=== PATIENT | female | born 1985 | race Caucasian/White ===

== ENCOUNTER → 2016-11-29 | Outpatient (CLI) | payer MEDICARE ==
[2016-11-29 13:55] LABS: Basophils # (A) 0.1 k/uL (0-0.2); Basophils % (A) 1 %; CH 29.2; CHCM 32.7; Eosinophils # (A) 0.2 k/uL (0-0.7); Eosinophils % (A) 2 %; HDW 2.69; HGB 12.7 gm/dL (11.4-16.0); Luc # (Auto) 0.24; Luc % (Auto) 2; Lymphocytes % (A) 20 %; MCH 28.6 pg (25.0-35.0); MCHC 31.8 g/dL (31.0-37.0); MCV 89.8 fL (80.0-100.0); Mean Platelet Volume 7.3; Monocytes # (A) 0.5 k/uL (0-1.0); Monocytes % (A) 5 %; Neutrophils # (A) 7.1 k/uL (1.3-7.7); Neutrophils % (A) 71 %; RBC 4.45 m/uL (3.80-5.40); RDW 14.1 % (11.5-15.5); WBC 10.1 k/uL (3.8-10.6)
[2016-11-29 14:57] LABS: Hepatitis B Surface Ag Index 0.07
[2016-11-29 15:03] LABS: Hepatitis B Core IgM Index 0.05
[2016-11-29 15:14] LABS: Hepatitis C Virus IgG Index 0.01
[2016-11-29 15:20] LABS: Hepatitis C Virus IgG Ab Negative (Negative)
[2016-11-30 07:24] LABS: HIV-1/HIV-2 Ab Screen NONREAC (NON REAC)
== END | disposition home or self-care (01) ==
LOC: LABWHC1 13:07
PROVIDERS: ATTEND Physician Assistant
DX: Z11.3 Encounter for screening for infections with a predominantly sexual mode of transmission (principal)
CPT/HCPCS: 36415; 80074; 85025; 87389

== ENCOUNTER → 2016-12-14 | Outpatient (CLI) | payer MEDICARE, OTHER ==
--- NOTE | 2016-12-14 10:30 | XR ---
EXAMINATION TYPE: XR thoracic spine 2V DATE OF EXAM: 12/14/2016 10:07 AM COMPARISON: NONE HISTORY: Back pain Alignment is anatomic. There is no compression deformities. Hypertrophic change of the spine with mi ld to moderate degenerative disc disease. Pedicles intact. IMPRESSION: 1. Multilevel degenerative disc disease.
== END | disposition home or self-care (01) ==
LOC: RADXRMAIN 09:51
PROVIDERS: ATTEND Physician Assistant
DX: M51.34 Other intervertebral disc degeneration, thoracic region (principal)
CPT/HCPCS: 72070

== ENCOUNTER → 2016-12-29 | Outpatient (CLI) | payer MEDICARE, OTHER ==
--- NOTE | 2016-12-29 09:56 | MR ---
EXAMINATION TYPE: MR thoracic spine wo con DATE OF EXAM: 12/29/2016 8:02 AM COMPARISON: MRI thoracic spine January 07, 2011. HISTORY: intervertebral disc degeneration tsp per order, severe back pain and numbness for 10 years p er patient. TECHNIQUE: Multiplanar, multisequence imaging of thoracic spine is performed without contrast FINDINGS: Spinal cord shows normal course, caliber, and signal as it courses the thoracic spine. Angela tebral body heights and alignment are satisfactory. There is disc desiccation with disc space narrowi ng at T7-T8 level redemonstrated. Posterior disc herniation is again seen at this level on sagittal i mages. No new disc herniations are evident on sagittal images. Heterogeneous endplate changes in the lower cervical spine anterior endplates is now seen. There is mild to minimal multilevel anterior spu rring in the lower thoracic levels. Review of the axial images shows slightly more broad-based central disc protrusion at T7-T8 level eff acing anterior thecal sac on current study versus prior exam where was more focal. Bilateral neural f oramina remain patent. There is new central disc herniation mildly effacing anterior thecal sac at T10-T11 level on axial im age 7. Bilateral neural foramina are patent. Remainder axial images show no significant disc herniation, spinal canal effacement, bilateral neural foraminal narrowing at any thoracic level. IMPRESSION: Redemonstration of disc herniation T7-T8 level which is slightly more prominent or broad- based on current study. New small posterior disc herniation T10-T11 level is noted.
== END | disposition home or self-care (01) ==
LOC: RADMRIMAIN 07:25
PROVIDERS: ATTEND Physician Assistant
DX: M51.24 Other intervertebral disc displacement, thoracic region (principal)
CPT/HCPCS: 72146

== ENCOUNTER 2017-01-26 03:02 | Emergency (ER) | payer MEDICARE, OTHER ==
[2017-01-26] MEDS ORDERED: MORPHINE SULFATE 2 MG/ML SYRINGE ONE (03:44)
[2017-01-26] MEDS ORDERED: MORPHINE SULFATE 4 MG/ML SYRINGE ONE (03:44)
[2017-01-26] MEDS ORDERED: HYDROmorphone 1 MG/ML 1 ML SYRINGE ONE (03:44)
[2017-01-26] MEDS ORDERED: ONDANSETRON 4 MG/2 ML VIAL ONE (03:44)
[2017-01-26] MEDS ORDERED: SODIUM CHLORIDE 0.9% 1,000 ML BAG ONE (03:44)
[2017-01-26 06:36] LABS: Partial Thromboplastin Time 24.2 sec (22.0-30.0); Prothrombin Time 10.1 sec (9.0-12.0)
[2017-01-26 06:43] LABS: ALT 38 U/L (9-52); AST 46 U/L (14-36); Alkaline Phosphatase 75 U/L (38-126); Anion Gap 14 mmol/L; Blood Urea Nitrogen 16 mg/dL (7-17); Calcium 10.4 mg/dL (8.4-10.2); Carbon Dioxide 25 mmol/L (22-30); Chloride 103 mmol/L (98-107); Glucose 107 mg/dL (74-99); Non-African American GFR(MDRD) >60 (>60 ml/min/1.73 sqM); Potassium 4.5 mmol/L (3.5-5.1); Sodium 142 mmol/L (137-145); Total Bilirubin 0.6 mg/dL (0.2-1.3)
[2017-01-26 06:57] LABS: Basophils # (A) 0.1 k/uL (0-0.2); Basophils % (A) 1 %; CH 29.9; CHCM 34.5; Eosinophils # (A) 0.2 k/uL (0-0.7); Eosinophils % (A) 3 %; HCT 41.8 % (34.0-46.0); HDW 2.73; HGB 14.4 gm/dL (11.4-16.0); Luc # (Auto) 0.23; Luc % (Auto) 3; Lymphocytes # (A) 2.1 k/uL (1.0-4.8); Lymphocytes % (A) 26 %; MCHC 34.4 g/dL (31.0-37.0); MCV 87.2 fL (80.0-100.0); Mean Platelet Volume 7.1; Monocytes # (A) 0.7 k/uL (0-1.0); Monocytes % (A) 8 %; Neutrophils % (A) 60 %; RDW 13.6 % (11.5-15.5); WBC 8.3 k/uL (3.8-10.6); WBC (Perox) 8.52
--- NOTE | 2017-01-26 11:14 | CT ---
EXAMINATION TYPE: CT facial bones wo con DATE OF EXAM: 01/26/2017 6:42 AM COMPARISON: NONE HISTORY: Head Injury pain CT DLP: 1659.80 mGycm Automated exposure control for dose reduction was used. TECHNIQUE: CT scan of the sinuses is performed without contrast, axial images are obtained, coronal r eformatted images are also reviewed. FINDINGS: There is mucosal thickening in the ethmoid sinuses. I see no fracture. Orbital margins are intact. There is no evidence of blowout fracture. Rheumatic arches are intact. Axilla is intact. Ther e is minimal mucosal thickening at the floor of the right maxillary sinus. Nasal bone appears intact. The mandibular ring appears intact. IMPRESSION: No fracture. Mild ethmoid sinusitis.
--- NOTE | 2017-01-26 11:21 | CT ---
EXAMINATION TYPE: CT brain wo con DATE OF EXAM: 01/26/2017 6:42 AM COMPARISON: 03/08/2011 HISTORY: Head Injury. Pain. CT DLP: 1659.80 mGycm Automated exposure control for dose reduction was used. FINDINGS: The ventricles and sulci appear normal. There is no mass effect nor midline shift. There is no sign o f intracranial hemorrhage. I see no definite mcintyre or white matter hypodense area to suggest cerebral edema. Calvarium is intact. IMPRESSION: Negative unenhanced head CT scan. No adverse change compared to old exam.
== END 2017-01-26 05:56 | disposition left against medical advice (07) ==
LOC: EC 03:02
DX: R51 Headache (principal)
CPT/HCPCS: 36415; 70450; 70486; 80053; 85025; 85610; 85730; 99284; 99499

== ENCOUNTER → 2017-01-26 | Emergency (ER) | payer MEDICARE, OTHER ==
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
== END | disposition left against medical advice (07) ==
LOC: EC 03:02
DX: R51 Headache (principal); R11.0 Nausea; G89.29 Other chronic pain; M54.9 Dorsalgia, unspecified; F31.9 Bipolar disorder, unspecified; F41.9 Anxiety disorder, unspecified; F17.200 Nicotine dependence, unspecified, uncomplicated; Z79.899 Other long term (current) drug therapy; Z88.8 Allergy status to other drugs, medicaments and biological substances
CPT/HCPCS: 99284

== ENCOUNTER → 2017-02-12 | Outpatient (CLI) | payer MEDICARE, OTHER ==
[2017-02-12 12:38] VITALS: BP 103/68; PULSE 94; RESP 16; TEMP 97.1
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
== END | disposition home or self-care (01) ==
LOC: PNWHC3 11:57
PROVIDERS: ATTEND Specialist
DX: M51.24 Other intervertebral disc displacement, thoracic region (principal); G89.29 Other chronic pain
CPT/HCPCS: 99211

== ENCOUNTER → 2017-05-02 | Outpatient (CLI) | payer MEDICARE, OTHER ==
[2017-05-02 13:53] LABS: Follicle Stimulating Hormone 5.3 mIU/mL; Prolactin 9.7 ng/mL (3.0-18.6)
[2017-05-02 21:24] LABS: ACTH 5.05 pg/mL (0.00-45.99)
== END | disposition home or self-care (01) ==
LOC: LABWHC1 11:59
PROVIDERS: ATTEND Internal Medicine Endocrinology, Diabetes & Metabolism
DX: E03.8 Other specified hypothyroidism (principal); R53.83 Other fatigue
CPT/HCPCS: 36415; 82024; 82533; 82607; 83001; 83002; 84144; 84146; 84439; 84443; 84480

== ENCOUNTER → 2017-05-11 | Outpatient (CLI) | payer MEDICARE, OTHER ==
--- NOTE | 2017-05-11 12:31 | US ---
EXAMINATION TYPE: US pelvis complete transvag DATE OF EXAM: 05/11/2017 COMPARISON: NONE CLINICAL HISTORY: 31-year-old female N94.6 DYSMENORRHEA. Patient states pelvic pain during menses TECHNIQUE: Transvaginal (TV) and Transabdominal (TA) Date of LMP: 04/25/2017 FINDINGS: Uterus: Anteverted measuring 7.7 x 4.2 x 4.4 cm Endometrial Stripe: 0.9 cm, within normal limits. Right Ovary: 3.4 x 2.3 x 2.6 cm for volume of 10.6 mL. Left Ovary: 3.9 x 1.9 x 3.1 cm for a volume of 12.1 mL. There is a thick walled hypoechoic lesion wi thin measuring 23 x 9 x 20 mm that shows no internal vascularity. Small amount of left adnexal and pelvic free fluid. IMPRESSION: 1. A 2.3 cm hypoechoic lesion in the left ovary. This may represent a hemorrhagic corpus luteum or he morrhagic cyst. Recommend 6-8 week follow-up to ensure resolution. 2. Small amount of left adnexal and cul-de-sac free fluid.
== END | disposition home or self-care (01) ==
LOC: RADUSWWP 11:01
PROVIDERS: ATTEND Family Medicine
DX: N83.9 Noninflammatory disorder of ovary, fallopian tube and broad ligament, unspecified (principal)
CPT/HCPCS: 76830; 76856

== ENCOUNTER → 2017-05-11 | Outpatient (CLI) | payer MEDICARE, OTHER ==
--- NOTE | 2017-05-11 12:20 | US ---
EXAMINATION TYPE: US thyroid st tissue head/neck DATE OF EXAM: 05/11/2017 COMPARISON: NONE CLINICAL HISTORY: E04.9 GOITER DIFFUSE. Thyroid enlargement GLAND SIZE: Right Lobe: 5.4 x 1.7 x 1.7 cm Overall Parenchyma: homogenous Left Lobe: 4.2 x 1.1 x 1.5 cm Overall Parenchyma: homogeneous Isthmus Thickness: 0.3 cm Bilateral neck scanned, no evidence of lymphadenopathy. Bilateral thyroid appeared wnl IMPRESSION: MILD ENLARGEMENT OF THE RIGHT LOBE OF THE THYROID.
== END | disposition home or self-care (01) ==
LOC: RADUSWWP 10:59
PROVIDERS: ATTEND Internal Medicine Endocrinology, Diabetes & Metabolism
DX: E04.9 Nontoxic goiter, unspecified (principal)
CPT/HCPCS: 76536

== ENCOUNTER → 2017-06-01 | Outpatient (CLI) | payer MEDICARE, OTHER | END | disposition home or self-care (01) | LOC: LABWHC1 09:14 | PROVIDERS: ATTEND Internal Medicine Endocrinology, Diabetes & Metabolism | DX: E03.8 Other specified hypothyroidism (principal) | CPT/HCPCS: 36415; 82024; 82533; 82670; 83001; 83002; 84144 ==

== ENCOUNTER → 2017-06-01 | Outpatient (CLI) | payer MEDICARE, OTHER ==
--- NOTE | 2017-06-01 09:30 | MR ---
EXAMINATION TYPE: MR pituitary wo/w con DATE OF EXAM: 06/01/2017 COMPARISON: CT brain 01/26/2017 HISTORY: HYPOTHYROIDISM TECHNIQUE: Multiplanar, multisequence images of the brain and brainstem is performed without and with IV contras t, utilizing 10 mL intravenous MultiHance . FINDINGS: The pituitary shows a somewhat asymmetric appearance, the right side of the pituitary is so mewhat increased in cephalad to caudal dimension as compared to the left. There is suggestion of some decreased enhancement to the right side of the pituitary on coronal image 13 and 12 as compared to t he remainder of the gland, sagittal image 11 and 10. T2 signal is homogenous and symmetric. Pituitary stalk is midline. There are normal internal carotid artery flow voids. Corpus callosum is normal. Op tic chiasm is unremarkable. IMPRESSION: Findings may represent pituitary microadenoma. Correlate.
== END | disposition home or self-care (01) ==
LOC: RADMRIMAIN 08:19
PROVIDERS: ATTEND Internal Medicine Endocrinology, Diabetes & Metabolism
DX: E03.8 Other specified hypothyroidism (principal)
CPT/HCPCS: 70553; A9577

== ENCOUNTER → 2017-07-16 | Outpatient (CLI) | payer MEDICARE, OTHER | END | disposition home or self-care (01) | LOC: LABWHC1 10:32 | PROVIDERS: ATTEND Internal Medicine Endocrinology, Diabetes & Metabolism | DX: D35.2 Benign neoplasm of pituitary gland (principal) | CPT/HCPCS: 36415; 84439; 84443 ==

== ENCOUNTER 2017-08-25 01:58 | Inpatient (IN) | payer MEDICARE, MEDICAID ==
[2017-08-25] MEDS ORDERED: DEXTROSE 50%-WATER 50 ML SYRINGE IVP STA (02:27)
--- NOTE | 2017-08-25 02:30 | ED ---
General Adult HPI - General Chief complaint: Psychiatric Symptoms Stated complaint: Mental Health Time Seen by Provider: 08/25/17 02:00 Source: patient, family, RN notes reviewed, old records reviewed Mode of arrival: ambulatory Limitations: no limitations - History of Present Illness Initial comments: 32-year-old female presents with suicide attempt. Patient states that earlier in the day she followed up with her psychiatrist and therapist, at this appointment she was told there would no longer be refilling her Adderall prescription. Patient states she relies on this medication to maintain a job and her activities of daily living. Patient states that she injected approximately 10 mL of Humalog. She has this insulin because her cat has diabetes. Patient also admits to taking 40-45 1 mg Ativan tablets. Patient's ingestion and injection took place at approximately 5 PM. Patient did write a suicide note to her father. Patient states that after injecting the insulin she had extreme hunger, she states she ate and ate. She then passed out. When she awoke approximately 2 hours later she was suppression was alive, and she did call her father at that time. Patient has no physical complaints at the time my evaluation. She states she is still hungry. - Related Data Home Medications Medication Instructions Recorded Confirmed Baclofen 10 mg PO HS 02/12/17 02/12/17 Dextroamphetamine/Amphetamine 30 mg PO DAILY 02/12/17 02/12/17 [Adderall Xr] Gabapentin [Gabapentin] 400 mg PO TID 02/12/17 02/12/17 LORazepam [Ativan] 1 mg PO TID 02/12/17 02/12/17 OXcarbazepine [Trileptal] 600 mg PO BID 02/12/17 02/12/17 Previous Rx's Medication Instructions Recorded traMADol HCl [Ultram] 50 mg PO Q6H PRN #20 tab 04/28/15 Allergies Allergy/AdvReac Type Severity Reaction Status Date / Time iodine Allergy Severe Rash/Hives Verified 08/25/17 02:09 shellfish derived [Shrimp] Allergy Severe Rash/Hives Verified 08/25/17 02:09 Review of Systems ROS Statement: Those systems with pertinent positive or pertinent negative responses have been documented in the HPI. ROS Other: All systems not noted in ROS Statement are negative. Past Medical History Past Medical History: Asthma, Fibromyalgia, Osteoarthritis (OA) History of Any Multi-Drug Resistant Organisms: MRSA Date of last positivie culture/infection: 2007 MDRO Source:: left arm Past Surgical History: No Surgical Hx Reported Past Anesthesia/Blood Transfusion Reactions: No Reported Reaction Past Psychological History: Anxiety, Bipolar, Depression Smoking Status: Heavy tobacco smoker Past Alcohol Use History: None Reported Past Drug Use History: None Reported, Heroin, Marijuana - Past Family History Mother Family Medical History: No Reported History Father Family Medical History: Hypertension General Exam Limitations: no limitations General appearance: alert, in no apparent distress, appears intoxicated Head exam: Present: atraumatic, normocephalic Eye exam: Present: normal appearance, PERRL ENT exam: Present: mucous membranes dry Neck exam: Present: normal inspection, tenderness, meningismus Respiratory exam: Present: normal lung sounds bilaterally. Absent: respiratory distress Cardiovascular Exam: Present: regular rate, normal rhythm GI/Abdominal exam: Present: soft. Absent: distended, tenderness Rectal exam: Present: deferred Extremities exam: Present: normal inspection, normal capillary refill. Absent: pedal edema Back exam: Present: normal inspection, full ROM Neurological exam: Present: alert, oriented X3, CN II-XII intact. Absent: motor sensory deficit Psychiatric exam: Present: depressed, flat affect, suicidal ideation Skin exam: Present: warm, dry, intact Course Vital Signs 08/25/17 08/25/17 02:02 03:41 Temperature 97.5 F L Pulse Rate 97 86 Respiratory 18 16 Rate Blood Pressure 112/68 104/72 O2 Sat by Pulse 100 100 Oximetry - Reevaluation(s) Reevaluation #1: 08/25/17 06:02 Patient is evaluated by EPS at 6 AM, currently awaiting disposition, likely inpatient admission. Reevaluation #2: 08/25/17 06:37 On reevaluation, patient is awake alert, in no acute distress. Blood sugar remained stable. EKG Findings - EKG Comments: EKG Findings:: EKG shows sinus rhythm with sinus arrhythmia, incomplete right bundle branch block, ventricular rate 74, SD interval 164, QRS duration 110, QTC 441, no signs of ischemia. Repeat EKG obtained at 623 shows normal sinus rhythm, ventricular rate 97, SD interval 150, QRS duration 14, QTC 459, there is incomplete right bundle branch block, no signs of arrhythmia or ischemia. Medical Decision Making - Medical Decision Making Patient remains alert all the emergency department, blood sugar normalizes with 1 amp of D50 and patient is eating. Duration of Humalog is 5 hours. Injection time proximally 1700, this was 10 hours prior to arrival. 32-year-old female presenting with suicidal ideation and attempt. Patient's blood sugar is initially low, this is corrected with IV dextrose and feeding the patient. Patient is medically cleared and evaluated by EPS. She will be admitted for further psychiatric evaluation and treatment. - Lab Data Result diagrams: 08/25/17 02:31 08/25/17 02:31 Lab Results 08/25/17 08/25/17 08/25/17 Range/Units 02:23 02:31 02:31 WBC 14.5 H (3.8-10.6) k/uL RBC 4.80 (3.80-5.40) m/uL Hgb 13.9 (11.4-16.0) gm/dL Hct 43.6 (34.0-46.0) % MCV 90.7 (80.0-100.0) fL MCH 29.0 (25.0-35.0) pg MCHC 32.0 (31.0-37.0) g/dL RDW 14.0 (11.5-15.5) % Plt Count 400 (150-450) k/uL Neutrophils % 74 % Lymphocytes % 19 % Monocytes % 5 % Eosinophils % 1 % Basophils % 0 % Neutrophils # 10.7 H (1.3-7.7) k/uL Lymphocytes # 2.8 (1.0-4.8) k/uL Monocytes # 0.7 (0-1.0) k/uL Eosinophils # 0.1 (0-0.7) k/uL Basophils # 0.0 (0-0.2) k/uL Sodium 141 (137-145) mmol/L Potassium 3.9 (3.5-5.1) mmol/L Chloride 108 H (98-107) mmol/L Carbon Dioxide 24 (22-30) mmol/L Anion Gap 9 mmol/L BUN 18 H (7-17) mg/dL Creatinine 0.60 (0.52-1.04) mg/dL Est GFR (MDRD) Af Amer >60 (>60 ml/min/1.73 sqM) Est GFR (MDRD) Non-Af >60 (>60 ml/min/1.73 sqM) Glucose 38 L* (74-99) mg/dL POC Glucose (mg/dL) 50 L (75-99) mg/dL POC Glu Airport Attendant Ros Fry Plasma Lactic Acid Gaurav (0.7-2.0) mmol/L Calcium 9.8 (8.4-10.2) mg/dL Total Bilirubin 0.1 L (0.2-1.3) mg/dL AST 23 (14-36) U/L ALT 33 (9-52) U/L Alkaline Phosphatase 66 (38-126) U/L Total Protein 6.9 (6.3-8.2) g/dL Albumin 4.3 (3.5-5.0) g/dL Urine Color Urine Appearance (Clear) Urine pH (5.0-8.0) Ur Specific [place] (1.001-1.035) Urine Protein (Negative) Urine Glucose (UA) (Negative) Urine Ketones (Negative) Urine Blood (Negative) Urine Nitrite (Negative) Urine Bilirubin (Negative) Urine Urobilinogen (<2.0) mg/dL Ur Leukocyte Esterase (Negative) Urine RBC (0-5) /hpf Urine WBC (0-5) /hpf Ur Squamous Epith Cells (0-4) /hpf Urine Bacteria (None) /hpf Urine Mucus (None) /hpf Urine HCG, Qual (Not Detectd) Salicylates <1.0 mg/dL Urine Opiates Screen (NotDetected) Ur Oxycodone Screen (NotDetected) Urine Methadone Screen (NotDetected) Ur Propoxyphene Screen (NotDetected) Acetaminophen <10.0 ug/mL Ur Barbiturates Screen (NotDetected) U Tricyclic Antidepress (NotDetected) Ur Phencyclidine Scrn (NotDetected) Ur Amphetamines Screen (NotDetected) U Methamphetamines Scrn (NotDetected) U Benzodiazepines Scrn (NotDetected) Urine Cocaine Screen (NotDetected) U Marijuana (THC) Screen (NotDetected) Serum Alcohol <10 mg/dL 08/25/17 08/25/17 08/25/17 Range/Units 02:31 02:31 02:31 WBC (3.8-10.6) k/uL RBC (3.80-5.40) m/uL Hgb (11.4-16.0) gm/dL Hct (34.0-46.0) % MCV (80.0-100.0) fL MCH (25.0-35.0) pg MCHC (31.0-37.0) g/dL RDW (11.5-15.5) % Plt Count (150-450) k/uL Neutrophils % % Lymphocytes % % Monocytes % % Eosinophils % % Basophils % % Neutrophils # (1.3-7.7) k/uL Lymphocytes # (1.0-4.8) k/uL Monocytes # (0-1.0) k/uL Eosinophils # (0-0.7) k/uL Basophils # (0-0.2) k/uL Sodium (137-145) mmol/L Potassium (3.5-5.1) mmol/L Chloride (98-107) mmol/L Carbon Dioxide (22-30) mmol/L Anion Gap mmol/L BUN (7-17) mg/dL Creatinine (0.52-1.04) mg/dL Est GFR (MDRD) Af Amer (>60 ml/min/1.73 sqM) Est GFR (MDRD) Non-Af (>60 ml/min/1.73 sqM) Glucose (74-99) mg/dL POC Glucose (mg/dL) (75-99) mg/dL POC Glu Airport Attendant ID Plasma Lactic Acid Gaurav 1.4 (0.7-2.0) mmol/L Calcium (8.4-10.2) mg/dL Total Bilirubin (0.2-1.3) mg/dL AST (14-36) U/L ALT (9-52) U/L Alkaline Phosphatase (38-126) U/L Total Protein (6.3-8.2) g/dL Albumin (3.5-5.0) g/dL Urine Color Yellow Urine Appearance Cloudy H (Clear) Urine pH 5.5 (5.0-8.0) Ur Specific [place] 1.014 (1.001-1.035) Urine Protein Trace H (Negative) Urine Glucose (UA) 3+ H (Negative) Urine Ketones Negative (Negative) Urine Blood Small H (Negative) Urine Nitrite Negative (Negative) Urine Bilirubin Negative (Negative) Urine Urobilinogen <2.0 (<2.0) mg/dL Ur Leukocyte Esterase Trace H (Negative) Urine RBC 3 (0-5) /hpf Urine WBC 7 H (0-5) /hpf Ur Squamous Epith Cells 19 H (0-4) /hpf Urine Bacteria Moderate H (None) /hpf Urine Mucus Moderate H (None) /hpf Urine HCG, Qual Not Detected (Not Detectd) Salicylates mg/dL Urine Opiates Screen Not Detected (NotDetected) Ur Oxycodone Screen Not Detected (NotDetected) Urine Methadone Screen Not Detected (NotDetected) Ur Propoxyphene Screen Not Detected (NotDetected) Acetaminophen ug/mL Ur Barbiturates Screen Not Detected (NotDetected) U Tricyclic Antidepress Not Detected (NotDetected) Ur Phencyclidine Scrn Not Detected (NotDetected) Ur Amphetamines Screen Not Detected (NotDetected) U Methamphetamines Scrn Not Detected (NotDetected) U Benzodiazepines Scrn Detected H (NotDetected) Urine Cocaine Screen Not Detected (NotDetected) U Marijuana (THC) Screen Not Detected (NotDetected) Serum Alcohol mg/dL 08/25/17 08/25/17 08/25/17 Range/Units 02:56 03:30 04:05 WBC (3.8-10.6) k/uL RBC (3.80-5.40) m/uL Hgb (11.4-16.0) gm/dL Hct (34.0-46.0) % MCV (80.0-100.0) fL MCH (25.0-35.0) pg MCHC (31.0-37.0) g/dL RDW (11.5-15.5) % Plt Count (150-450) k/uL Neutrophils % % Lymphocytes % % Monocytes % % Eosinophils % % Basophils % % Neutrophils # (1.3-7.7) k/uL Lymphocytes # (1.0-4.8) k/uL Monocytes # (0-1.0) k/uL Eosinophils # (0-0.7) k/uL Basophils # (0-0.2) k/uL Sodium (137-145) mmol/L Potassium (3.5-5.1) mmol/L Chloride (98-107) mmol/L Carbon Dioxide (22-30) mmol/L Anion Gap mmol/L BUN (7-17) mg/dL Creatinine (0.52-1.04) mg/dL Est GFR (MDRD) Af Amer (>60 ml/min/1.73 sqM) Est GFR (MDRD) Non-Af (>60 ml/min/1.73 sqM) Glucose (74-99) mg/dL POC Glucose (mg/dL) 103 H 69 L 85 (75-99) mg/dL POC Glu Airport Attendant ID Watt, Ros Watt, Ros Watt, Ros Plasma Lactic Acid Gaurav (0.7-2.0) mmol/L Calcium (8.4-10.2) mg/dL Total Bilirubin (0.2-1.3) mg/dL AST (14-36) U/L ALT (9-52) U/L Alkaline Phosphatase (38-126) U/L Total Protein (6.3-8.2) g/dL Albumin (3.5-5.0) g/dL Urine Color Urine Appearance (Clear) Urine pH (5.0-8.0) Ur Specific [place] (1.001-1.035) Urine Protein (Negative) Urine Glucose (UA) (Negative) Urine Ketones (Negative) Urine Blood (Negative) Urine Nitrite (Negative) Urine Bilirubin (Negative) Urine Urobilinogen (<2.0) mg/dL Ur Leukocyte Esterase (Negative) Urine RBC (0-5) /hpf Urine WBC (0-5) /hpf Ur Squamous Epith Cells (0-4) /hpf Urine Bacteria (None) /hpf Urine Mucus (None) /hpf Urine HCG, Qual (Not Detectd) Salicylates mg/dL Urine Opiates Screen (NotDetected) Ur Oxycodone Screen (NotDetected) Urine Methadone Screen (NotDetected) Ur Propoxyphene Screen (NotDetected) Acetaminophen ug/mL Ur Barbiturates Screen (NotDetected) U Tricyclic Antidepress (NotDetected) Ur Phencyclidine Scrn (NotDetected) Ur Amphetamines Screen (NotDetected) U Methamphetamines Scrn (NotDetected) U Benzodiazepines Scrn (NotDetected) Urine Cocaine Screen (NotDetected) U Marijuana (THC) Screen (NotDetected) Serum Alcohol mg/dL 08/25/17 08/25/17 Range/Units 04:28 06:01 WBC (3.8-10.6) k/uL RBC (3.80-5.40) m/uL Hgb (11.4-16.0) gm/dL Hct (34.0-46.0) % MCV (80.0-100.0) fL MCH (25.0-35.0) pg MCHC (31.0-37.0) g/dL RDW (11.5-15.5) % Plt Count (150-450) k/uL Neutrophils % % Lymphocytes % % Monocytes % % Eosinophils % % Basophils % % Neutrophils # (1.3-7.7) k/uL Lymphocytes # (1.0-4.8) k/uL Monocytes # (0-1.0) k/uL Eosinophils # (0-0.7) k/uL Basophils # (0-0.2) k/uL Sodium (137-145) mmol/L Potassium (3.5-5.1) mmol/L Chloride (98-107) mmol/L Carbon Dioxide (22-30) mmol/L Anion Gap mmol/L BUN (7-17) mg/dL Creatinine (0.52-1.04) mg/dL Est GFR (MDRD) Af Amer (>60 ml/min/1.73 sqM) Est GFR (MDRD) Non-Af (>60 ml/min/1.73 sqM) Glucose (74-99) mg/dL POC Glucose (mg/dL) 89 127 H (75-99) mg/dL POC Glu Airport Attendant ID Watt, Ros Watt, Ros Plasma Lactic Acid Gaurav (0.7-2.0) mmol/L Calcium (8.4-10.2) mg/dL Total Bilirubin (0.2-1.3) mg/dL AST (14-36) U/L ALT (9-52) U/L Alkaline Phosphatase (38-126) U/L Total Protein (6.3-8.2) g/dL Albumin (3.5-5.0) g/dL Urine Color Urine Appearance (Clear) Urine pH (5.0-8.0) Ur Specific [place] (1.001-1.035) Urine Protein (Negative) Urine Glucose (UA) (Negative) Urine Ketones (Negative) Urine Blood (Negative) Urine Nitrite (Negative) Urine Bilirubin (Negative) Urine Urobilinogen (<2.0) mg/dL Ur Leukocyte Esterase (Negative) Urine RBC (0-5) /hpf Urine WBC (0-5) /hpf Ur Squamous Epith Cells (0-4) /hpf Urine Bacteria (None) /hpf Urine Mucus (None) /hpf Urine HCG, Qual (Not Detectd) Salicylates mg/dL Urine Opiates Screen (NotDetected) Ur Oxycodone Screen (NotDetected) Urine Methadone Screen (NotDetected) Ur Propoxyphene Screen (NotDetected) Acetaminophen ug/mL Ur Barbiturates Screen (NotDetected) U Tricyclic Antidepress (NotDetected) Ur Phencyclidine Scrn (NotDetected) Ur Amphetamines Screen (NotDetected) U Methamphetamines Scrn (NotDetected) U Benzodiazepines Scrn (NotDetected) Urine Cocaine Screen (NotDetected) U Marijuana (THC) Screen (NotDetected) Serum Alcohol mg/dL Disposition Clinical Impression: Attempted suicide, Suicidal ideation, Depression Disposition: ADMITTED IP TO THIS [facility] Condition: Stable Referrals: Silvestre Kothari MD [Primary Care Provider] - 1-2 days Time of Disposition: 06:03 Decision to Admit Reason: Admit from EC Decision Date: 08/25/17 Decision Time: 06:03
[2017-08-25 02:40] LABS: Glucose,Whole Blood 50 mg/dL (75-99)
[2017-08-25 02:54] LABS: Basophils % (A) 0 %; CH 30.1; CHCM 33.4; Eosinophils # (A) 0.1 k/uL (0-0.7); Eosinophils % (A) 1 %; HCT 43.6 % (34.0-46.0); HDW 2.57; HGB 13.9 gm/dL (11.4-16.0); Luc # (Auto) 0.19; Luc % (Auto) 1; Lymphocytes # (A) 2.8 k/uL (1.0-4.8); Lymphocytes % (A) 19 %; MCV 90.7 fL (80.0-100.0); Mean Platelet Volume 7.6; Monocytes # (A) 0.7 k/uL (0-1.0); Monocytes % (A) 5 %; Neutrophils # (A) 10.7 k/uL (1.3-7.7); Neutrophils % (A) 74 %; WBC 14.5 k/uL (3.8-10.6); WBC (Perox) 14.34
[2017-08-25 02:57] LABS: Appearance,Urine Cloudy (Clear); Bacteria,Urine Moderate /hpf; Bilirubin,Urine Negative (Negative); Glucose,Urine (UA) 3+ (Negative); Ketones,Urine Negative (Negative); Leukocyte Esterase,Urine Trace (Negative); Mucus,Urine Moderate /hpf; Nitrite,Urine Negative (Negative); PH, Urine 5.5 (5.0-8.0); Particle Count 11482; Protein,Urine Trace (Negative); RBC,Urine 3 /hpf (0-5); Specific Gravity,Urine 1.014 (1.001-1.035); Squamous Epithelial Cell,Urine 19 /hpf (0-4); UA Billing (MACRO vs. MICRO) MICRO; Urobilinogen,Urine <2.0 mg/dL (<2.0); WBC,Urine 7 /hpf (0-5)
[2017-08-25 03:04] LABS: ALT 33 U/L (9-52); AST 23 U/L (14-36); Acetaminophen <10.0 ug/mL; Alcohol <10 mg/dL; Alkaline Phosphatase 66 U/L (38-126); Anion Gap 9 mmol/L; Blood Urea Nitrogen 18 mg/dL (7-17); Calcium 9.8 mg/dL (8.4-10.2); Carbon Dioxide 24 mmol/L (22-30); Chloride 108 mmol/L (98-107); Non-African American GFR(MDRD) >60 (>60 ml/min/1.73 sqM); Potassium 3.9 mmol/L (3.5-5.1); Salicylate <1.0 mg/dL; Sodium 141 mmol/L (137-145); Total Bilirubin 0.1 mg/dL (0.2-1.3); Total Protein 6.9 g/dL (6.3-8.2)
[2017-08-25 03:09] LABS: Glucose,Whole Blood 103 mg/dL (75-99)
[2017-08-25 03:10] LABS: Glucose 38 mg/dL (74-99)
[2017-08-25] MEDS ORDERED: DEXTROSE 5%-0.45% NACL 1,000 ML IV ONE (03:31)
[2017-08-25 03:34] LABS: Glucose,Whole Blood 69 mg/dL (75-99)
[2017-08-25] MEDS ORDERED: NICOTINE 14MG/24HR PATCH TRANSDERM STA (03:44)
[2017-08-25 04:44] LABS: Glucose,Whole Blood 89 mg/dL (75-99)
[2017-08-25 04:44] LABS: Glucose,Whole Blood 85 mg/dL (75-99)
[2017-08-25 06:04] LABS: Glucose,Whole Blood 127 mg/dL (75-99)
[2017-08-25] MEDS ORDERED: MAGNESIUM HYDROXIDE 2,400 MG/10 ML CUP PO PRN (07:12)
[2017-08-25] MEDS ORDERED: MAG HYDROX/AL HYDROX/SIMETH 30 ML CUP PO PRN (07:12)
[2017-08-25] MEDS: OXcarbazepine 150 MG TAB PO SCH ×2 (08:14→20:16)
[2017-08-25 09:34] LABS: Glucose,Whole Blood 97 mg/dL (75-99)
[2017-08-25 09:51] VITALS: RESP 16
[2017-08-25] MEDS: NICOTINE 21MG/24HR PATCH TRANSDERM SCH (12:36)
[2017-08-25] MEDS: OLANZapine 2.5 MG TAB PO SCH ×2 (17:17→20:16)
[2017-08-25] MEDS: GABAPENTIN 400 MG CAP PO SCH (20:18)
[2017-08-25] MEDS: diphenhydrAMINE 50 MG CAP PO PRN (20:19)
--- NOTE | 2017-08-25 21:58 | P.MDCNMH ---
History of Present Illness H&P Date: 08/25/17 Chief Complaint: Suicide attempt Patient is a 32-year-old female with a known history of hypothyroidism, fibromyalgia and depression came to ER with suicide attempt. Patient followed up with his her psychiatrist and at this appointment she was told that there be no longer refilling her Adderall prescription. Patient is a Work-related number of Humalog. She up and he'll insulin because of her cat has diabetes. Patient also took 40-45 1 mg Ativan tablets. Patient says that she is relating mainly on Adderall to maintain her job and daily activities. Patient says that she passed out after taking medication. Patient woke approximately 2 hours lateral and lateral she called her father to tell about her situation. Patient was brought to the hospital for evaluation. Otherwise patient says that she has fibromyalgia and she takes multivitamins and green tea to make a healthy and she says she is very health conscious. Patient otherwise does smoke cigarettes on a daily basis. Patient does not have any chest pain or short of breath now. No nausea vomiting or abdominal pain. Patient otherwise wants to take a multivitamin tablets. Review of Systems Constitutional: Patient denies any fever or chills . No generalized weakness or weight loss. Abdomen: Patient denied nausea vomiting and diarrhea and abdominal pain. Cardiovascular: Patient denies any chest pain or short of breath no palpitations. Respiratory: patient denied any cough is from production. No shortness of breath Neurologic: Patient denied any numbness or tingling headache. Musculoskeletal: Patient denies any complaints of joint swelling or deformity. Skin: Negative Psychiatric: Currently denied any suicidal ideation Endocrine: No heat or cold intolerance. No recent weight gain. Genitourinary: No dysuria or hematuria. All other 14 point ROS negative except the above Past Medical History Past Medical History: Asthma, Fibromyalgia, Osteoarthritis (OA) History of Any Multi-Drug Resistant Organisms: MRSA Date of last positivie culture/infection: 2007 MDRO Source:: left arm Past Surgical History: No Surgical Hx Reported Past Anesthesia/Blood Transfusion Reactions: No Reported Reaction Past Psychological History: Anxiety, Bipolar, Depression Smoking Status: Heavy tobacco smoker Past Alcohol Use History: None Reported Past Drug Use History: None Reported, Heroin, Marijuana - Past Family History Mother Family Medical History: No Reported History Father Family Medical History: Hypertension Medications and Allergies Home Medications Medication Instructions Recorded Confirmed Type Dextroamphetamine/Amphetamine 30 mg PO DAILY 02/12/17 08/25/17 History [Adderall Xr] Gabapentin [Gabapentin] 400 mg PO TID 02/12/17 08/25/17 History OXcarbazepine [Trileptal] 600 mg PO BID 02/12/17 08/25/17 History Biotin 5 mg PO DAILY 08/25/17 08/25/17 History Green Tea [place] Extract [Green Tea 150 mg PO DAILY 08/25/17 08/25/17 History Extract] Multivitamins, Thera [Multivitamin 1 tab PO DAILY 08/25/17 08/25/17 History (formulary)] Allergies Allergy/AdvReac Type Severity Reaction Status Date / Time iodine Allergy Severe Rash/Hives Verified 08/25/17 15:36 shellfish derived [Shrimp] Allergy Severe Rash/Hives Verified 08/25/17 15:36 Physical Exam Vitals: Vital Signs Temp Pulse Pulse Pulse Resp BP BP 08/25/17 09:25 95 16 08/25/17 08:07 98.3 F 101 H 17 101/63 08/25/17 07:58 98.0 F 95 18 96/61 08/25/17 03:41 86 16 104/72 08/25/17 02:02 97.5 F L 97 18 112/68 BP Pulse Ox 08/25/17 09:25 115/65 08/25/17 08:07 08/25/17 07:58 100 08/25/17 03:41 100 08/25/17 02:02 100 Intake and Output 08/25/17 08/25/17 08/25/17 06:59 14:59 22:59 Other: Weight 58.967 kg 61.1 kg Patient Weight 08/26/17 06:59 Weight 61.1 kg PHYSICAL EXAMINATION: Patient is lying in the bed comfortably, no acute distress, awake alert and oriented.. HEENT: Normocephalic. Neck is supple. Pupils reactive. Nostrils clear. Oral cavity is moist. Ears reveal no drainage. Neck reveals no JVD, carotid bruits, or thyromegaly. CHEST EXAMINATION: Trachea is central. Symmetrical expansion. Lung aj clear to auscultation and percussion. CARDIAC: Normal S1, S2 with no gallops. No murmurs ABDOMEN: Soft. Bowel sounds normal. No organomegaly. No abdominal bruits. Extremities: reveal no edema. No clubbing or cyanosis Neurologically awake, alert, oriented x3 with well-coordinated movements. No focal deficits noted Skin: No rash or skin lesions. Psychiatric: Cooperative. Delusional. Nonsuicidal Musculoskeletal: No joint swelling or deformity. Normal range of motion. Cranial Nerve Examination - Cranial Nerves Cranial Nerve I- Olfactory: Intact Cranial Nerve II- Optic: Intact Cranial Nerve III- Oculomotor: Intact Cranial Nerve IV- Trochlear: Intact Cranial Nerve V- Trigeminal: Intact Cranial Nerve - Abducens: Intact Cranial Nerve VII- Facial: Intact Cranial Nerve VIII- Auditory: Intact Cranial Nerve IX- Glossopharyngeal: Intact Cranial Nerve X- Vagus: Intact Cranial Nerve XI- Accessory: Intact Cranial Nerve XII- Hypoglossal: Intact Results CBC & Chem 7: 08/25/17 02:31 08/25/17 02:31 Labs: Abnormal Lab Results - Last 24 Hours (Table) 08/25/17 08/25/17 08/25/17 Range/Units 02:23 02:31 02:31 WBC 14.5 H (3.8-10.6) k/uL Neutrophils # 10.7 H (1.3-7.7) k/uL Chloride 108 H (98-107) mmol/L BUN 18 H (7-17) mg/dL Glucose 38 L* (74-99) mg/dL POC Glucose (mg/dL) 50 L (75-99) mg/dL Total Bilirubin 0.1 L (0.2-1.3) mg/dL Urine Appearance (Clear) Urine Protein (Negative) Urine Glucose (UA) (Negative) Urine Blood (Negative) Ur Leukocyte Esterase (Negative) Urine WBC (0-5) /hpf Ur Squamous Epith Cells (0-4) /hpf Urine Bacteria (None) /hpf Urine Mucus (None) /hpf U Benzodiazepines Scrn (NotDetected) 08/25/17 08/25/17 08/25/17 Range/Units 02:31 02:56 03:30 WBC (3.8-10.6) k/uL Neutrophils # (1.3-7.7) k/uL Chloride (98-107) mmol/L BUN (7-17) mg/dL Glucose (74-99) mg/dL POC Glucose (mg/dL) 103 H 69 L (75-99) mg/dL Total Bilirubin (0.2-1.3) mg/dL Urine Appearance Cloudy H (Clear) Urine Protein Trace H (Negative) Urine Glucose (UA) 3+ H (Negative) Urine Blood Small H (Negative) Ur Leukocyte Esterase Trace H (Negative) Urine WBC 7 H (0-5) /hpf Ur Squamous Epith Cells 19 H (0-4) /hpf Urine Bacteria Moderate H (None) /hpf Urine Mucus Moderate H (None) /hpf U Benzodiazepines Scrn Detected H (NotDetected) 08/25/17 Range/Units 06:01 WBC (3.8-10.6) k/uL Neutrophils # (1.3-7.7) k/uL Chloride (98-107) mmol/L BUN (7-17) mg/dL Glucose (74-99) mg/dL POC Glucose (mg/dL) 127 H (75-99) mg/dL Total Bilirubin (0.2-1.3) mg/dL Urine Appearance (Clear) Urine Protein (Negative) Urine Glucose (UA) (Negative) Urine Blood (Negative) Ur Leukocyte Esterase (Negative) Urine WBC (0-5) /hpf Ur Squamous Epith Cells (0-4) /hpf Urine Bacteria (None) /hpf Urine Mucus (None) /hpf U Benzodiazepines Scrn (NotDetected) Assessment and Plan Assessment: Hypoglycemia likely due to insulin overdose to commit suicide Mild leukocytosis likely reactive Acute suicide attempt with insulin dose Fibromyalgia history Hypothyroidism Nicotine addiction Depression ADD/ADHD Plan: Patient was given D50 as well as on D5 half normal saline drip. Patient's blood sugar is within normal limits currently. Tolerating oral diet. Currently continue with psychiatric evaluation and management. We will follow closely further recommendations based on the clinical course. Thank you for your consult
[2017-08-25] MEDS: MELATONIN 5 MG TABLET PO PRN (22:04)
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
[2017-08-26] MEDS: OLANZapine 2.5 MG TAB PO SCH ×4 (07:58→20:36)
[2017-08-26] MEDS: OXcarbazepine 150 MG TAB PO SCH ×3 (07:59→20:36)
[2017-08-26] MEDS: ACETAMINOPHEN TAB 325 MG TAB PO PRN ×2 (08:00→22:32)
[2017-08-26] MEDS: NICOTINE 21MG/24HR PATCH TRANSDERM SCH (08:00)
[2017-08-26] MEDS: GABAPENTIN 400 MG CAP PO SCH ×3 (08:01→20:36)
[2017-08-26 08:07] LABS: Basophils # (A) 0.1 k/uL (0-0.2); Basophils % (A) 1 %; CH 30.4; CHCM 32.8; Eosinophils # (A) 0.2 k/uL (0-0.7); Eosinophils % (A) 2 %; HCT 44.3 % (34.0-46.0); HDW 2.66; HGB 14.1 gm/dL (11.4-16.0); Luc % (Auto) 2; Lymphocytes # (A) 3.6 k/uL (1.0-4.8); Lymphocytes % (A) 42 %; MCH 29.5 pg (25.0-35.0); MCHC 31.7 g/dL (31.0-37.0); MCV 93.1 fL (80.0-100.0); Mean Platelet Volume 6.8; Monocytes # (A) 0.5 k/uL (0-1.0); Monocytes % (A) 5 %; Neutrophils % (A) 47 %; RBC 4.76 m/uL (3.80-5.40); RDW 12.9 % (11.5-15.5); WBC 8.5 k/uL (3.8-10.6); WBC (Perox) 8.66
[2017-08-26 08:21] LABS: Anion Gap 7 mmol/L; Blood Urea Nitrogen 16 mg/dL (7-17); Calcium 9.6 mg/dL (8.4-10.2); Carbon Dioxide 27 mmol/L (22-30); Chloride 110 mmol/L (98-107); Glucose 97 mg/dL (74-99); Non-African American GFR(MDRD) >60 (>60 ml/min/1.73 sqM); Potassium 4.6 mmol/L (3.5-5.1); Sodium 144 mmol/L (137-145)
[2017-08-26] MEDS ORDERED: NICOTINE 21MG/24HR PATCH TRANSDERM SCH (09:00)
[2017-08-26] MEDS: MULTIVITAMINS, THERA 1 EACH TAB PO SCH (09:12)
[2017-08-26] MEDS: MELATONIN 5 MG TABLET PO PRN (21:09)
--- NOTE | 2017-08-26 21:35 | PN ---
PROGRESS NOTE DATE OF SERVICE: 08/26/2017. CHIEF COMPLAINT: The patient had made a suicide attempt by taking a high dose of insulin and taking an unknown quantity of Ativan 1 mg tablets. She may have taken up to 40 or 45 tablets, by her initial report. INTERVAL HISTORY: The patient has been doing fairly well overall. She had a quiet evening last night. She slept fairly well today. She has been up and about. It is noted that when she is out in the day area she will interact with others. She will seem to show a fairly positive mood. She has appropriate behavior. She attends groups. Her thoughts remain clear. I had a meeting with the patient and her father. Her father noted that she had long-term issues with substance abuse that led to her having significant substance use interventions. She had gone to a program in [place] that her mother identified. She was there for 6 months. She said that she was "kicked out of" of the program because she began talking about the idea of wanting to leave the sooner. The program was to be a 1 year treatment programs. From there she ended up going to [place] and was in another program for 6 months. She said that in some ways that was a better program for her. She lived in a dormitory styled setting. She attended various groups related to substance use issues. At the same time in the dormitory were people that were homeless. Part of her program included doing work to help support the homeless program. From there she ended up moving to [place] where she apparently had lived in some kind of a home that was set up for substance use issues. She did have some difficult situations along the way with poor choices in relationships. She ended up moving back to [place] and initially had a chauncey start with a difficult relationship and then living for a month with her father before moving out on her own. Both father and patient asserted that she has done much better since she got on Adderall. She talked about how she was able to establish a more stable life situation for herself. She attributed much of that to Adderall. She did discuss that in the past she has been in DBT, which she felt was helpful. One point that the patient made was that she is aware that her emotions sometimes overtakes her and that reality gets side lined as a result. It is noted that when we focused on issues related to current treatment and that the first order of business is to help her get through initial acute withdrawal from her ongoing use of Ultram and Ativan, she got distressed about this. She ended up ending the interview though her father continued to discuss some of the issues. He was in agreement with the idea that she needed to focus on moving away from those medications and finding appropriate alternatives. I did make an effort to discuss with the patient that her negative response to the discussion was a possible reflection that her emotions may be overtaking reality for her. I assured her that part of our treatment plan would be to see that she has individual psychotherapy set up, which she says that she has arrangements in place. In addition to that we would be sure that she had psychiatric follow up. She suggested that she may have a psychiatric appointment set up for August 31, though she could not provide details. It was noted that overall the patient seemed to have functioned fairly well through the course of the discussion other than when issues relating to acute withdrawal came up. She has not had change in her general health. She tolerates his psychotropic medications. MENTAL STATUS: Patient gave fair eye contact. She was restless. Her thoughts were clear. Her affect at times was intense. Her mood dysphoric. She was somewhat distressed. In the interview, though in other settings, she seemed to be quite comfortable and relaxed. ASSESSMENT: I will continue the current diagnosis and treatment plan. I will continue psychotropic medications the same. Again, I had extensive discussion with the patient that at this point, we would focus on stabilization and attempting to ameliorate symptoms of early withdrawal for benzodiazepines and opioids. I indicated that we would work with her to be sure she has a clear appointments in place. It is noted that the patient did make statements that she feels better on the unit because she feels that things are in more control and more in her control here than on the outside. I discussed with her that one objective for her in working towards discharge would be to develop a plan to where she could transfer some of this sense of being in control to what she anticipates when she is discharged. It is noteworthy that in the interview the patient maintain very good focus. She had clear thoughts. She expressed herself appropriately. There was no indication of attention or hyperactivity difficulties. There is concern in regards to long-term use of psychostimulants given her past history of substance use issues. I discussed this with her in regards to the critical nature of cautious use of any psychostimulants. We will continue to focus on stabilization and discharge planning. MMODL / IJN: [id number] /
[2017-08-26] MEDS: diphenhydrAMINE 50 MG CAP PO PRN (22:55)
[2017-08-27] MEDS ORDERED: diphenhydrAMINE 50 MG CAP PO STA (00:35)
[2017-08-27 07:17] VITALS: BP 107/60; PULSE 64; TEMP 98.4
[2017-08-27] MEDS: GABAPENTIN 400 MG CAP PO SCH ×2 (07:52→15:51)
[2017-08-27] MEDS: MULTIVITAMINS, THERA 1 EACH TAB PO SCH (07:52)
[2017-08-27] MEDS: ACETAMINOPHEN TAB 325 MG TAB PO PRN ×2 (07:52→15:51)
[2017-08-27] MEDS: NICOTINE 21MG/24HR PATCH TRANSDERM SCH (07:52)
[2017-08-27] MEDS: OXcarbazepine 150 MG TAB PO SCH (08:00)
--- NOTE | 2017-09-23 17:08 | P.DS ---
Providers Date of admission: 08/25/17 07:09 Expected date of discharge: 08/27/17 Attending physician: Flash Ramirez DO Consults: 08/25/17 07:12 Consult Physician Routine Consulting Provider: Jocelyn Gomez Consult Reason/Comments: medical management Do you want consulting provider notified?: Yes, Notify in am Primary care physician: Silvestre Kothari - Discharge Diagnosis(es) (1) PTSD (post-traumatic stress disorder) Status: Acute (2) Major depressive disorder Status: Acute Hospital Course: HOSPITAL COURSE: * Legal status at discharge: Voluntary * Compliant with medications: Yes * Reported adverse side effects: No * Required restraints/seclusion: No * Emergency Medication administered: No * Attended group, recreational, activity therapies: Consistently Patient is a 32-year-old female with a history of depression, anxiety , and PTSD who presented to the inpatient unit after overdosing on insulin and her prescribed Ativan. Patient identifies the primary precipitating factor as her PCP recently discontinued her Adderall XR 30-mg PO QAM. Patient states she was recently told she would have to get all future prescriptions from a psychiatrist, and she reports being on it for 10-months, however, her PCP refused to provide with a supply up until said date. During hospital, patient attended most group therapies and seemed highly goal oriented. She reported concerns about her ability to function and go back to work without a prescription for Adderall XR. She reports a history of significant improvement in global functioning including her day-to-day activities, occupational functioning, and social functioning. She reports being able to get a job after she started Adderall XR portion previously struggled. She reports no history of abusing Adderall XR her prescription refilled early. Pharmacy records were obtained verified this was true. SW verified the patient has an upcoming therapy and psychiatry appointment. Given no significant history of substance abuse, pharmacy records, and upcoming appointment, patient was started back on Adderall XR 30 mg by mouth every morning and discharged home. She is instructed to follow-up as scheduled. At time of discharge patient denied SI/HI /AVH. Patient instructed to continue current regimen otherwise except discontinue Ativan. MENTAL STATUS EXAM: Appearance: alert, groomed, appears stated age, steady gait Behavior: no psychomotor agitation or psychomotor retardation, no abnormal movements, fair eye contact Attitude: cooperative Speech: normal rate, rhythm, fluency, articulation, volume, and prosody; primary language: Italian Mood: "anxiously hopeful" Affect: congruent, reactive Thought processes: linear Thought content: patient does not appear to be responding to internal stimuli ; patient denies auditory and visual hallucinations, no delusions appreciated Insight: limited but improving Judgment: fair Cognitive: oriented to all 3 spheres, average intelligence Patient Condition at Discharge: Stable Plan - Discharge Summary New Discharge Prescriptions: New diphenhydrAMINE [Benadryl] 50 mg PO HS PRN cap PRN Reason: Insomnia Gabapentin [Neurontin] 400 mg PO TID #42 cap Melatonin 10 mg PO HS PRN tablet PRN Reason: for sleep Nicotine 21Mg/24Hr Patch [Habitrol] 1 patch TRANSDERM DAILY #14 patch Continue Multivitamins, Thera [Multivitamin (formulary)] 1 tab PO DAILY Green Tea Diamond Bar Extract [Green Tea Extract] 150 mg PO DAILY Biotin 5 mg PO DAILY Dextroamphetamine/Amphetamine [Adderall Xr] 30 mg PO DAILY #20 cap.er.24h OXcarbazepine [Trileptal] 600 mg PO BID #28 tablet Discontinued Gabapentin [Gabapentin] 400 mg PO TID Discharge Medication List Biotin 5 mg PO DAILY 08/25/17 [History] Green Tea Diamond Bar Extract [Green Tea Extract] 150 mg PO DAILY 08/25/17 [History] Multivitamins, Thera [Multivitamin (formulary)] 1 tab PO DAILY 08/25/17 [History ] Dextroamphetamine/Amphetamine [Adderall Xr] 30 mg PO DAILY #20 cap.er.24h [Rx] Gabapentin [Neurontin] 400 mg PO TID #42 cap 08/27/17 [Rx] Melatonin 10 mg PO HS PRN tablet 08/27/17 [Rx] Nicotine 21Mg/24Hr Patch [Habitrol] 1 patch TRANSDERM DAILY #14 patch 08/27/17 [ Rx] OXcarbazepine [Trileptal] 600 mg PO BID #28 tablet 08/27/17 [Rx] diphenhydrAMINE [Benadryl] 50 mg PO HS PRN cap 08/27/17 [Rx] Follow up Appointment(s)/Referral(s): Glenny Wu [Outside] - 09/03/17 2:30 pm (Sheryl) Silvestre Kothari MD [Primary Care Provider] - 1-2 days Patient Instructions/Handouts: Depression (DC), Suicide Prevention for Adults ( DC) Activity/Diet/Wound Care/Special Instructions: Please attend all outpatient follow up appointments as directed, activity and diet as tolerated, only take prescribed medications, avoid the use of street drugs or alcohol. If symptoms return or become worse, please call the crisis line at and/or go to the nearest emergency room for an evaluation. Discharge Disposition: HOME SELF-CARE
== END 2017-08-27 17:43 | disposition home or self-care (01) | DRG 918 ==
LOC: EC 01:58 → 3MHU 07:09
PROVIDERS: ADMIT Psychiatry & Neurology Psychiatry; ATTEND Psychiatry & Neurology Psychiatry
DX: T42.4X2A Poisoning by benzodiazepines, intentional self-harm, initial encounter (principal); F11.23 Opioid dependence with withdrawal; F13.239 Sedative, hypnotic or anxiolytic dependence with withdrawal, unspecified; F15.93 Other stimulant use, unspecified with withdrawal; F32.9 Major depressive disorder, single episode, unspecified; T38.3X2A Poisoning by insulin and oral hypoglycemic [antidiabetic] drugs, intentional self-harm, initial encounter; E11.9 Type 2 diabetes mellitus without complications; F17.200 Nicotine dependence, unspecified, uncomplicated; F41.0 Panic disorder [episodic paroxysmal anxiety]; F43.10 Post-traumatic stress disorder, unspecified; J45.909 Unspecified asthma, uncomplicated; M19.90 Unspecified osteoarthritis, unspecified site; M79.7 Fibromyalgia; Z59.0 Homelessness; Z62.810 Personal history of physical and sexual abuse in childhood; Z63.8 Other specified problems related to primary support group; Z79.899 Other long term (current) drug therapy; Z82.49 Family history of ischemic heart disease and other diseases of the circulatory system; Z91.5 Personal history of self-harm
CPT/HCPCS: 36415; 80048; 80053; 80183; 80306; 80320; 81001; 81025; 82075; 83520; 83605; 84443; 85025; 93005; 96361; 96374; 99285

== ENCOUNTER 2018-02-18 18:50 | Emergency (ER) | payer MEDICARE, OTHER ==
[2018-02-18 18:57] VITALS: RESP 18
--- NOTE | 2018-02-18 19:55 | ED ---
Psych HPI - General Chief Complaint: Psychiatric Symptoms Stated Complaint: Mental health Time Seen by Provider: 02/18/18 19:26 Source: patient, RN notes reviewed, old records reviewed Mode of arrival: ambulatory - History of Present Illness Initial Comments: Patient is a 32-year-old female presents emergency Department with her mother chief complaint of suicidal ideations, depression and severe anxiety. She currently lives at home alone with her cat. She reached out to [facility] today because she needs to seek help with counseling services. She is on multiple psychiatric medications. She feels like her psychiatric meds are working. Some days she'll feel clear and had another days of very foggy. She also complains of dental pain. Takes her dental pain is contributing to her mental health state. Patient states that she has been on antibiotics for her upper incisor. Patient states that she could never go through with her suicidal ideations. She did have some plan she'll not related to me at this time. She does not currently have a job. She reports that she has an on again off again relationship with her mother. - Related Data Home Medications Medication Instructions Recorded Confirmed LORazepam [Ativan] 2 mg PO HS 02/18/18 02/18/18 Levothyroxine Sodium [Synthroid] 25 mcg PO DAILY 02/18/18 02/18/18 Methylphenidate HCl [Ritalin] 20 mg PO BID 02/18/18 02/18/18 QUEtiapine [SEROquel] 150 mg PO HS PRN 02/18/18 02/18/18 Zolpidem [Ambien] 10 mg PO HS 02/18/18 02/18/18 lamoTRIgine [LaMICtal] 50 mg PO DAILY 02/18/18 02/18/18 valACYclovir HCL [Valtrex] 1,000 mg PO DAILY 02/18/18 02/18/18 Previous Rx's Medication Instructions Recorded Gabapentin [Neurontin] 400 mg PO TID #42 cap 08/27/17 Amoxic-Pot Clav 875-125Mg 1 tab PO Q12HR #20 tablet 02/18/18 [Augmentin 875-125] Ketorolac [Toradol] 10 mg PO Q6HR #10 tab 02/18/18 Allergies Allergy/AdvReac Type Severity Reaction Status Date / Time iodine Allergy Severe Rash/Hives Verified 02/18/18 20:09 shellfish derived [Shrimp] Allergy Severe Rash/Hives Verified 02/18/18 20:09 Review of Systems ROS Statement: Those systems with pertinent positive or pertinent negative responses have been documented in the HPI. ROS Other: All systems not noted in ROS Statement are negative. Past Medical History Past Medical History: Asthma, Fibromyalgia, Osteoarthritis (OA) History of Any Multi-Drug Resistant Organisms: MRSA Date of last positivie culture/infection: 2007 MDRO Source:: left arm Past Surgical History: No Surgical Hx Reported Past Anesthesia/Blood Transfusion Reactions: No Reported Reaction Past Psychological History: Anxiety, Bipolar, Depression Smoking Status: Current every day smoker Past Alcohol Use History: Rare Past Drug Use History: Heroin, Marijuana - Past Family History Mother Family Medical History: No Reported History Father Family Medical History: Hypertension General Exam - General Exam Comments Initial Comments: 32-year-old female. Alert. No distress. Limitations: no limitations General appearance: alert, anxious Head exam: Present: atraumatic, normocephalic, normal inspection Eye exam: Present: normal appearance, PERRL, EOMI. Absent: scleral icterus, conjunctival injection, periorbital swelling ENT exam: Present: normal exam, mucous membranes moist, other (Denies dental carry over tooth #10. No significant abscess noted.) Neck exam: Present: normal inspection. Absent: tenderness, meningismus, lymphadenopathy Respiratory exam: Present: normal lung sounds bilaterally. Absent: respiratory distress, wheezes, rales, rhonchi, stridor Cardiovascular Exam: Present: regular rate, normal rhythm, normal heart sounds. Absent: systolic murmur, diastolic murmur, rubs, gallop, clicks GI/Abdominal exam: Present: soft, normal bowel sounds. Absent: distended, tenderness, guarding, rebound, rigid Extremities exam: Present: normal inspection, full ROM, normal capillary refill. Absent: tenderness, pedal edema, joint swelling, calf tenderness Back exam: Present: normal inspection Neurological exam: Present: alert, oriented X3, CN II-XII intact Psychiatric exam: Present: normal mood, depressed, suicidal ideation. Absent: normal affect Skin exam: Present: warm, dry, intact, normal color. Absent: rash Course Vital Signs 02/18/18 18:52 Temperature 97.7 F Pulse Rate 106 H Respiratory 18 Rate Blood Pressure 125/84 O2 Sat by Pulse 99 Oximetry Medical Decision Making - Medical Decision Making 32-year-old female presents with mother with a history of suicidal ideations. Discussed if she is ambulate denying suicidal thoughts. was evaluated by EPS. They feel the patient to be discharged on palpation. She will be going home with mother. Agree to safety plan. We'll put the patient on Augmentin and she does have history of overdoses. No prescriptions for narcotics will be given. Given Motrin. Patient be discharged at this time with all the [facility]. She has a follow-up appointment with [facility] dental clinic. - Lab Data Lab Results 02/18/18 Range/Units 19:50 Urine Opiates Screen Not Detected (NotDetected) Ur Oxycodone Screen Not Detected (NotDetected) Urine Methadone Screen Not Detected (NotDetected) Ur Propoxyphene Screen Not Detected (NotDetected) Ur Barbiturates Screen Not Detected (NotDetected) U Tricyclic Antidepress Not Detected (NotDetected) Ur Phencyclidine Scrn Not Detected (NotDetected) Ur Amphetamines Screen Not Detected (NotDetected) U Methamphetamines Scrn Not Detected (NotDetected) U Benzodiazepines Scrn Not Detected (NotDetected) Urine Cocaine Screen Not Detected (NotDetected) U Marijuana (THC) Screen Not Detected (NotDetected) Disposition Clinical Impression: Depression, Pain, dental Disposition: HOME SELF-CARE Condition: Good Instructions: Suicide Prevention for Adults (ED) Additional Instructions: Patient has a follow-up with outpatient services at [facility]. Also following up with her dental appointment. Take antibiotic as prescribed. Return to emergency department if any alarming signs or symptoms occur. Prescriptions: Amoxic-Pot Clav 875-125Mg [Augmentin 875-125] 1 tab PO Q12HR #20 tablet Ketorolac [Toradol] 10 mg PO Q6HR #10 tab Is patient prescribed a controlled substance at d/c from ED?: No If prescribed controlled substance>3 days was MAPS reviewed?: No When asked, does pt state using other controlled substances?: No Referrals: None,Stated [Primary Care Provider] - 1-2 days Time of Disposition: 21:34
[2018-02-18 20:17] LABS: Amphetamine Screen,Urine Not Detected (NotDetected); Barbiturate Screen,Urine Not Detected (NotDetected); Benzodiazepines Screen,Urine Not Detected (NotDetected); Cocaine Screen,Urine Not Detected (NotDetected); Methadone Screen, Urine Not Detected (NotDetected); Opiate Screen,Urine Not Detected (NotDetected); Oxycodone Screen, Urine Not Detected (NotDetected); Phencyclidine Screen,Urine Not Detected (NotDetected); Tricyclic Antidepressant,Urine Not Detected (NotDetected); Urn Cannabinoid Scrn Not Detected (NotDetected)
[2018-02-18] MEDS ORDERED: IBUPROFEN 600 MG STARTER PACK 4 TAB BTL PO STA (21:30)
[2018-02-18] MEDS ORDERED: AMOXIC-POT CLAV 875MG STARTER 2 EACH TABLET PO STA (21:42)
[2018-02-18 22:01] VITALS: BP 134/87; PULSE 97; TEMP 97.4
== END 2018-02-18 22:01 | disposition home or self-care (01) ==
LOC: EC 18:50
DX: F31.9 Bipolar disorder, unspecified (principal); K08.89 Other specified disorders of teeth and supporting structures; F41.9 Anxiety disorder, unspecified; F17.200 Nicotine dependence, unspecified, uncomplicated; Z86.14 Personal history of Methicillin resistant Staphylococcus aureus infection; Z91.013 Allergy to seafood; Z91.048 Other nonmedicinal substance allergy status; Z79.899 Other long term (current) drug therapy
CPT/HCPCS: 80306; 99284